=== PATIENT | male | born 1995 | race Two or more races ===

== ENCOUNTER 2017-07-08 17:02 | Emergency (ER) | payer BC ==
[~2017-07-08] VITALS: Ht 180.3 cm; Wt 86.2 kg
[2017-07-08 17:19] VITALS: BP 121/63
[2017-07-08] MEDS ORDERED: LIDOCAINE 1% (LOCAL ANESTH.) PF 5ml SDV IJ ONE (19:30)
== END 2017-07-08 19:41 | disposition home or self-care (01) ==
LOC: ER 17:02
DX: S51.011A Laceration without foreign body of right elbow, initial encounter (principal); W25.XXXA Contact with sharp glass, initial encounter; Y93.89 Activity, other specified; Y99.8 Other external cause status; Y92.89 Other specified places as the place of occurrence of the external cause
CPT/HCPCS: 12002